=== PATIENT | female | born 1955 | race African-American/Black ===

== ENCOUNTER 2017-01-12 06:56 | Emergency (ER) | payer MEDICARE, OTHER ==
[~2017-01-12] VITALS: Ht 162.6 cm; Wt 109.1 kg
[~2017-01-12 06:56] MED LIST: AMLO-512 PO; ASPI-825 PO; CALC500T62 PO; DOCU250C76 PO; GABA-531 PO; GLUC1TAB39 PO; LORA10TA7 PO; TRIA1TAB91 PO
[2017-01-12] MEDS: OxyCODONE HCL/ACETAMINOPHEN 5-325 MG TABLET PO ONE (07:55)
[2017-01-12] MEDS: KETOROLAC TROMETHAMINE 60 MG/2 ML VIAL IM ONE (07:55)
[2017-01-12 09:08] VITALS: BP 127/70
== END 2017-01-12 09:09 | disposition home or self-care (01) ==
LOC: EMS 07:00
DX: M54.31 Sciatica, right side (principal); F12.10 Cannabis abuse, uncomplicated; I10 Essential (primary) hypertension; Z79.82 Long term (current) use of aspirin
CPT/HCPCS: 96372; 99283; J1885

== ENCOUNTER 2017-11-11 15:26 | Emergency (ER) | payer MEDICARE, OTHER ==
[~2017-11-11] VITALS: Ht 167.6 cm; Wt 109.1 kg
[~2017-11-11 15:26] MED LIST changes: +DOCU250C14 PO; -DOCU250C76 PO
[2017-11-11] MEDS ORDERED: SIMV-259 PO (15:37)
[2017-11-11] MEDS ORDERED: POTA99TA15 PO (15:37)
[2017-11-11] MEDS ORDERED: FAMO20 PO (15:37)
[2017-11-11] MEDS ORDERED: MONT10TA21 PO (15:37)
[2017-11-11] MEDS ORDERED: ALBU8.5H8 IH (15:37)
[2017-11-11] MEDS ORDERED: BECL8.7A7 IH (15:37)
[2017-11-11 17:13] VITALS: BP 142/87
[2017-11-11] MEDS ORDERED: KETOROLAC TROMETHAMINE 60 MG/2 ML VIAL IM ONE (17:15)
== END 2017-11-11 17:32 | disposition home or self-care (01) ==
LOC: EMS 15:27
DX: M72.2 Plantar fascial fibromatosis (principal); I10 Essential (primary) hypertension; F12.90 Cannabis use, unspecified, uncomplicated; Z79.82 Long term (current) use of aspirin
CPT/HCPCS: 96372; 99283; J1885

== ENCOUNTER → 2017-12-13 | Outpatient (CLI) | payer MEDICARE, OTHER ==
[~2017-12-13] MED LIST changes: +ALBU8.5H8 IH; +BECL8.7A7 IH; +FAMO20 PO; -GLUC1TAB39 PO; +MONT10TA21 PO; +POTA99TA15 PO; +SIMV-259 PO
== END | disposition home or self-care (01) ==
LOC: RADPV 14:54
PROVIDERS: ATTEND Podiatrist
DX: M77.32 Calcaneal spur, left foot (principal)

== ENCOUNTER 2018-06-20 13:58 | Emergency (ER) | payer MEDICARE, OTHER ==
[~2018-06-20] VITALS: Ht 167.6 cm; Wt 106.8 kg
[2018-06-20 15:30] VITALS: BP 124/75
[2018-06-20] MEDS: IBUPROFEN 600 MG TABLET PO ONE ×2 (15:47→15:53)
[2018-06-20] MEDS ORDERED: HYDROCODONE/ACETAMINOPHEN 5-325 MG TABLET PO ONE (16:30)
== END 2018-06-20 17:12 | disposition home or self-care (01) ==
LOC: EMS 13:59
DX: S93.402A Sprain of unspecified ligament of left ankle, initial encounter (principal); S80.01XA Contusion of right knee, initial encounter; I10 Essential (primary) hypertension; F12.90 Cannabis use, unspecified, uncomplicated; Z79.82 Long term (current) use of aspirin; Z79.899 Other long term (current) drug therapy; W19.XXXA Unspecified fall, initial encounter; Y93.89 Activity, other specified; Y92.481 Parking lot as the place of occurrence of the external cause; Y99.8 Other external cause status

== ENCOUNTER 2022-07-15 20:36 | Emergency (ER) | payer OTHER ==
[~2022-07-15] VITALS: Ht 167.6 cm; Wt 104.5 kg
[~2022-07-15 20:36] MED LIST changes: +AMLO-258 PO; -AMLO-512 PO; +GABA-1181 PO; -GABA-531 PO; +MONT-35 PO; -MONT10TA21 PO
[2022-07-15] MEDS ORDERED: HYDROCODONE/ACETAMINOPHEN 5-325 MG TABLET PO ONE (21:30)
[2022-07-15] MEDS ORDERED: NEOMYCIN/POLYMYXIN B/HYDROCORT 10 ML OTIC SOLUTION AD ONE (21:30)
[2022-07-15] MEDS ORDERED: POLY238P PO (21:46)
[2022-07-15] MEDS ORDERED: HYDR-4723 PO (21:46)
[2022-07-15 21:53] VITALS: BP 139/54
== END 2022-07-15 22:00 | disposition home or self-care (01) ==
LOC: EMS 20:47
DX: U07.1 COVID-19 (principal); H60.91 Unspecified otitis externa, right ear; E78.00 Pure hypercholesterolemia, unspecified; F10.20 Alcohol dependence, uncomplicated; F12.90 Cannabis use, unspecified, uncomplicated; I10 Essential (primary) hypertension
CPT/HCPCS: 99283